=== PATIENT | female | born 1955 | race Two or more races ===

== ENCOUNTER 2018-03-31 08:26 | Outpatient (CLI) | payer OTHER | END 2018-03-31 08:42 | disposition home or self-care (01) | LOC: MAMO-SONO 08:26 | DX: Z12.31 Encounter for screening mammogram for malignant neoplasm of breast (principal); Z87.898 Personal history of other specified conditions; N60.11 Diffuse cystic mastopathy of right breast; N60.12 Diffuse cystic mastopathy of left breast ==

== ENCOUNTER 2018-10-15 12:49 | Inpatient (IN) | payer OTHER ==
[~2018-10-15] VITALS: Ht 154.9 cm; Wt 81.6 kg
[2018-10-15] MEDS ORDERED: ONGLYZA5 MG (13:18)
[2018-10-15] MEDS ORDERED: METFORMIN HCL1000 MG (13:18)
[2018-10-15] MEDS ORDERED: AMLODIPINE BESY10 MG (13:18)
[2018-10-15] MEDS ORDERED: ENALAPRIL MALEA20 MG (13:18)
[2018-10-15] MEDS ORDERED: ATENOLOL100 MG (13:18)
[2018-10-15] MEDS ORDERED: SIMVASTATIN20 MG (13:19)
[2018-10-15] MEDS ORDERED: FENOFIBRATE40 MG (13:19)
[2018-10-15] MEDS ORDERED: PRADAXA150 MG (13:19)
[2018-10-15] MEDS ORDERED: SYMBICORT 16010.2 GM (13:20)
[2018-10-15] MEDS ORDERED: LANTUS SOL100 UNIT/1 SUBCUTANEO (13:20)
[2018-10-20] MEDS ORDERED: XARELTO20 MG PO (08:33)
[2018-10-20] MEDS ORDERED: LIPITOR40 MG PO (08:34)
[2018-10-20] MEDS ORDERED: ATENOLOL25 MG PO (08:34)
[2018-10-20] MEDS ORDERED: ENALAPRIL MALEA20 MG PO (08:34)
[2018-10-20] MEDS ORDERED: AMLODIPINE BESY10 MG PO (08:34)
== END 2018-10-20 12:47 | DRG 66 ==
LOC: ER 12:49 → MEDJ 21:07
PROC: B020ZZZ Computerized Tomography (CT Scan) of Brain (ICD-10-PCS; principal; 2018-10-15)
PROC: B246ZZZ Ultrasonography of Right and Left Heart (ICD-10-PCS; 2018-10-15)
PROC: B030ZZZ Magnetic Resonance Imaging (MRI) of Brain (ICD-10-PCS; 2018-10-15)
PROC: B345ZZZ Ultrasonography of Bilateral Common Carotid Arteries (ICD-10-PCS; 2018-10-15)
PROC: B348ZZZ Ultrasonography of Bilateral Internal Carotid Arteries (ICD-10-PCS; 2018-10-15)
DX: I63.522 Cerebral infarction due to unspecified occlusion or stenosis of left anterior cerebral artery (principal); R47.01 Aphasia; E11.65 Type 2 diabetes mellitus with hyperglycemia; I10 Essential (primary) hypertension; G20 Parkinson's disease; R47.81 Slurred speech; I48.0 Paroxysmal atrial fibrillation
CPT/HCPCS: 70553